=== PATIENT | male | born 1980 | race American Indian/Alaskan Native ===

== ENCOUNTER 2017-10-20 17:55 | Emergency (ER) | payer SELFPAY ==
[2017-10-20 18:04] VITALS: BP 132/97; RESP 16; TEMP 98
[2017-10-20 19:55] VITALS: PULSE 103; O2SAT 96
--- NOTE | 2017-10-20 20:46 | ED PDOC ---
HPI: SOB/CHF/COPD Time Seen by Provider: 10/20/17 19:13 Chief Complaint (Nursing): Shortness Of Breath Chief Complaint (Provider): sore throat and congestion History Per: Patient History/Exam Limitations: no limitations Onset/Duration Of Symptoms: Days (10/20/17) Current Symptoms Are (Timing): Better (after visiting ED) Current Respiratory Medications: Albuterol Associated Symptoms: denies: Chest Pain Additional Complaint(s): Latoya Ellington, a 37 year old male with a history of asthma presents to the ED with sore throat and congestion onset today. Reports patient felt he had an allergic reaction after having fish soup for dinner. Also developed shortness of breath so he took Albuterol and used his asthma pump without any relief. Patient takes diclofenac for back-pain due to heavy lifting at work but has run out. Denies of rash or chest pain. Upon arrival to ER, patient states his symptoms have resolved. PMD: Provider TBD Past Medical History Reviewed: Historical Data, Nursing Documentation, Vital Signs Vital Signs: Last Vital Signs Temp 98.0 F 10/20/17 18:02 Pulse 103 H 10/20/17 19:54 Resp 16 10/20/17 19:54 BP 132/97 H 10/20/17 18:02 Pulse Ox 96 10/20/17 20:56 - Medical History PMH: Asthma - Family History Family History: States: Unknown Family Hx - Home Medications Home Medications: Ambulatory Orders Medication Instructions Recorded Cyclobenzaprine [Cyclobenzaprine 10 mg PO BID #15 tab 10/20/17 HCl] Diclofenac Sodium [Diclofenac 100 mg PO DAILY #14 tab.er.24h 10/20/17 Sodium ER] DiphenhydrAMINE [Benadryl] 50 mg PO Q8 #20 cap 10/20/17 Epinephrine [Epipen] 0.3 mg IJ PRN PRN #2 auto.injct 10/20/17 Fluticasone Nasal [Flonase] 1 actuation NS DAILY #1 bottle 10/20/17 Lidocaine 1 each TP DAILY #10 adh..patch 10/20/17 - Allergies Allergies/Adverse Reactions: Allergies Allergy/AdvReac Type Severity Reaction Status Date / Time crab Allergy ANAPHYLAXIS Verified 10/20/17 18:07 Review of Systems ROS Statement: Except As Marked, All Systems Reviewed And Found Negative ENT: Positive for: Nose Congestion, Throat Pain Cardiovascular: Negative for: Chest Pain Respiratory: Positive for: Shortness of Breath Musculoskeletal: Positive for: Back Pain Skin: Negative for: Rash Physical Exam - Reviewed Nursing Documentation Reviewed: Yes Vital Signs Reviewed: Yes - Physical Exam Appears: Positive for: Well, Non-toxic, No Acute Distress Head Exam: Positive for: ATRAUMATIC, NORMAL INSPECTION, NORMOCEPHALIC Skin: Positive for: Normal Color, Warm, Dry Eye Exam: Positive for: EOMI, Normal appearance, PERRL ENT: Positive for: Nasal Congestion Neck: Positive for: Normal, Painless ROM, Supple. Negative for: Decreased ROM Cardiovascular/Chest: Positive for: Regular Rate, Rhythm. Negative for: Murmur , Bradycardia Respiratory: Positive for: Normal Breath Sounds. Negative for: Decreased Breath Sounds, Accessory Muscle Use, Respiratory Distress Gastrointestinal/Abdominal: Positive for: Normal Exam, Bowel Sounds, Soft. Negative for: Tenderness, Guarding Back: Positive for: Normal Inspection. Negative for: L CVA Tenderness, R CVA Tenderness Extremity: Positive for: Normal ROM. Negative for: Tenderness, Pedal Edema, Deformity Neurologic/Psych: Positive for: Alert, Oriented (x3), Gait - ECG O2 Sat by Pulse Oximetry: 96 (RA) Pulse Ox Interpretation: Normal Medical Decision Making Medical Decision Making: Time: 19:25 Initial Impression: Upper Respiratory Tract Infection Differential Diagnosis includes but is not limited to: Resolved allergic reaction Initial Plan: --Reevaluation Clinical Impression: Allergic Reaction and Back pain Upon provider evaluation patient is medically stable, and requires no further treatment in the ED at this time. Patient will be discharged with Rx for dyspnea , back pain, and general allergic reaction. Counseling was provided and all questions were answered regarding diagnosis and need for follow up with PMD. There is agreement to discharge plan. Return if symptoms persist or worsen. HR slightly elevated 2/2 to albuterol usage prior to arrival, but going down. Documented by Bill Kyle acting as a scribe for Luis Miguel Bauer MD. All medical record entries made by the Scribe were at my direction and personally dictated by me. I have reviewed the chart and agree that the record accurately reflects my personal performance of the history, physical exam, medical decision making, and the department course for this patient. I have also personally directed, reviewed, and agree with the discharge instructions and disposition. Disposition - Clinical Impression Clinical Impression: Allergic reaction, Back pain - Patient ED Disposition Is Patient to be Admitted: No - Disposition Referrals: [facility] [Outside] Disposition: Routine/Home Disposition Time: 20:00 Condition: STABLE Prescriptions: Cyclobenzaprine [Cyclobenzaprine HCl] 10 mg PO BID #15 tab Diclofenac Sodium [Diclofenac Sodium ER] 100 mg PO DAILY #14 tab.er.24h DiphenhydrAMINE [Benadryl] 50 mg PO Q8 #20 cap Epinephrine [Epipen] 0.3 mg IJ PRN PRN #2 auto.injct PRN Reason: Anaphylaxis Fluticasone Nasal [Flonase] 1 actuation NS DAILY #1 bottle Lidocaine 1 each TP DAILY #10 adh..patch Instructions: Dyspnea (ED), Back Pain (ED), General Allergic Reaction (ED) Forms: [facility] (Ukrainian) Print Language: UKRAINIAN
== END 2017-10-20 19:55 | disposition home or self-care (01) ==
LOC: H.ER 17:55
DX: T78.40XA Allergy, unspecified, initial encounter (principal)